=== PATIENT | female | born 1945 | race Caucasian/White ===

== ENCOUNTER 2021-12-18 08:28 | Day surgery (SDC) | payer MEDICARE, BC, SELFPAY ==
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
[2021-12-18 09:28] VITALS: BP 123/76; PULSE 70; RESP 16; TEMP 36; O2SAT 98
[2021-12-18] MEDS: Tropicam./Phenyleph. (1/2.5%) 5 ML BTL OS ×3 (09:32→09:45)
[2021-12-18 09:33] VITALS: BMI 27.3
[2021-12-18] MEDS: Tetracaine 0.5% 4 ML BTL OS (10:28)
[2021-12-18] MEDS: Lidocaine 1% Multi-Dose 10 ML VIAL (10:29)
[2021-12-18] MEDS: Duovisc Viscoelastic System EACH 1 EACH (10:30)
[2021-12-18] MEDS: Balanced Salt Soln.-PLUS 500 ML BAG (10:30)
[2021-12-18] MEDS: Povidone-Iodine Ophth 30 ML BTL (10:31)
[2021-12-18] MEDS: Lidocaine 2% Jelly 6 ML SYR (10:31)
[2021-12-18] MEDS: Trypan Blue 0.06% 0.5 ML SYR (10:32)
[2021-12-18 10:40] VITALS: BP 123/81; PULSE 72; RESP 18; TEMP 36.2; O2SAT 97
--- NOTE | 2021-12-18 10:43 | PDOC.DSDIS_ITS ---
Discharge Plan Disposition Patient Disposition: HOME Condition: Good Discharge Details Attending Provider: Suman Zelaya Primary Care Provider: Niurka Sanches Home Meds and New Rx's Prescriptions: No Action multivitamin Tablet 1 tab PO DAILY atorvastatin 10 mg Tablet 10 mg PO DAILY triamcinolone acetonide 0.1 % Cream 1 applic TOPICAL BID Potassium-99 99 mg Tablet 99 mg PO DAILY lisinopril 10 mg Tablet 10 mg PO DAILY triamcinolone acetonide [Nasacort] 55 mcg Aerosol,[place] 1 spray INTRANASAL DAILY glucosamine-chondroitin [Osteo Bi-Flex] 250-200 mg Tablet 1 tab PO DAILY Fiber Supplement Powder 1 pwd PO DAILY gabapentin 300 mg Tablet 300 mg PO HS calcium carbonate-vitamin D3 [Calcium + D] 600 mg-5 mcg (200 unit) Tablet 1 tab PO DAILY PreserVision AREDS-2 250-90-40-1 mg Tablet,Chewable 1 tab PO DAILY Fiber Gummies 2.5 gram Tablet,Chewable 2.5 g PO DAILY Discharge Instructions Stand Alone Forms: Post-op Topical Cataract, Sonia Martins ([facility]U) Discharge Orders Discharge Orders: Discharge Order (Routine); Ordered 12/18/21 Ordered By: Suman Zelaya DS: Diagnosis Discharge Diagnosis (1) Nuclear sclerotic cataract of left eye: Status: Resolved (2) Cortical cataract of left eye: Status: Resolved
--- NOTE | 2021-12-18 10:43 | ROE_ITS ---
Date of service: 12/18/21 Time of Service: 10:43 Operative Note Operative Note DATE OF PROCEDURE: 12/18/21 PRE-OP DIAGNOSIS: Nuclear/cortical cataract, left eye, dense Poor red reflex, left eye secondary to cataract POST-OP DIAGNOSIS: same PROCEDURE: Cataract extraction using phacoemulsification with intraocular lens implant, left eye, using capsular staining with Vision Blue SURGEON: Suman Zelaya ANESTHESIA TYPE: Local By Surgeon and MAC Refer to Anesthesia Record COMPLICATIONS: None Patient was transported to: same day Patient's condition: stable Implants: Alo and Alo / [employer] Tecnis [id number] Indications: Progressive decreased vision due to cataract, left eye, with poor red reflex Procedure Description: CATARACT SURGERY OPERATIVE REPORT PREOPERATIVE DIAGNOSIS: 1. Nuclear/cortical cataract, left eye 2. Poor red reflex secondary to #1 POSTOPERATIVE DIAGNOSIS: Same OPERATION: 1. Cataract extraction using phacoemulsification with posterior chamber intraocular lens implant, left eye. 2. Capsular staining with Vision Blue IOL: IOL Scientific Investigator/Model: Alo & Alo / JEAN Tecnis [id number] IOL Power: + 20.5 diopters IOL Serial Number: [id number] Optic Diameter: 6.0 mm Haptic/Overall Diameter: 13.0 mm PHACO INFO: Chad [employer]ion Vision System with OZil and Active Fluidics Cumulative Dispersed Energy (CDE): 8.76 seconds SURGEON: Suman Zelaya MD, TREVOR ANESTHESIA: Monitored A [facility] (MAC), with local sub-tenon's anesthetic infiltration COMPLICATIONS: None SPECIMENS: None INDICATIONS FOR PROCEDURE: Patient is a 76-year-old lady with history of diminished visual acuity in her left eye secondary to the development of nuclear and cortical cataract. The option of cataract surgery was offered to the patient and she wished to proceed. PROCEDURE: The correct surgical eye was identified and marked as the left eye and the pupil was dilated in the preoperative area using mydriatics and cycloplegics. The dilated pupil size was 6.5 mm. . The patient elected to proceed without oral sedation. The patient was brought to the operating room where cardiopulmonary monitoring was instituted and surgical time-out was performed, confirming the correct operative eye and IOL power. Topical anesthesia was administered and ophthalmic povidone-iodine 5% was instilled into the conjunctival fornices. Lidocaine gel was applied to the cornea and the alden-ocular area was prepped with Betadine 10% solution and draped in the usual sterile fashion for intraocular surgery, including an aperture drape. A Tegaderm transparent film dressing was cut in half and used to cover the lashes and lid margins. Care was taken to sequester the lashes and lid margins under the Tegaderm dressing. A lid speculum was placed between the lids of the operative eye and the Chad LuxOR Revalia operating microscope was maneuvered into position. Richar scissors were then used to make a conjunctival buttonhole approximately 6mm posterior to the limbus in the inferonasal quadrant. Blunt dissection was carried out to expose bare sclera, and a blunt-tipped sub-tenon?s anesthesia cannula was introduced and passed posteriorly along the globe where non- preserved plain lidocaine was injected into posterior sub-Tenon?s space. A sideport knife was used to make a paracentesis port superiorly/superiortemporally. Intraocular phenylephrine/lidocaine was injected int the anterior chamber.. Air was then injected into the anterior chamber, followed by Vision Blue, which was painted over the anterior capsule and then irrigated out using BSS. The anterior chamber was filled with viscoelastic. A keratome knife was used to create a 2-plane near clear corneal tunnel extending approximately 2 mm into clear cornea temporally. A flap was raised on the anterior capsule and capsulorhexis forceps were used to complete a continuous curvilinear capsulorhexis of 5.0mm. Balanced salt solution was then used to perform cortical cleaving hydrodissection and nuclear hydrodelineation until the lens could be freely rotated within the capsular bag. The lens nucleus was then disassembled and removed within the capsular bag and iris plane using phacoemulsification. Residual cortical material was removed using the 45-degree angled silicone I/A tip with 0.3mm port. The posterior capsule was carefully polished to remove as much residual lens epithelial cells as safely possible. The capsular bag was then inflated and the anterior chamber deepened with viscoelastic. The lens implant described above was inserted into the capsular bag using the JEAN Lathrop Injector. A Kuglen hook was used to dial the IOL into position. Residual viscoelastic was then removed first from posterior to the IOL, then from the anterior chamber using the I/A handpiece. The lens implant was noted to center nicely within the capsular bag. The incisions were stromally hydrated, and the anterior chamber was reformed using BSS. Then 0.5cc of moxifloxacin 1.0mg/ml were injected into the capsular bag and anterior chamber. The incisions were checked with a Weck spear and found to be secure. Several drops of ophthalmic povidone-iodine 5% were then applied to the eye followed by two drops of Imprimis combination prednisolone/moxifloxacin/nepafenac solution. The drapes were removed and a clear plastic protective eye shield was placed over the eye. The patient was then returned to Same Day Surgery in stable condition.
--- NOTE | 2021-12-18 11:11 | W.ANESPOSTOP ---
Postoperative Evaluation Date, Time and Location Date Performed: 12/18/21 Time Performed: 10:55 Patient Location: Day Surgery Unit Vital Signs Most Recent Imported Vital Signs: Most Recent Vital Signs Temp Pulse Resp BP Pulse Ox 36.2 C L 72 18 123/81 97 12/18/21 10:40 12/18/21 10:40 12/18/21 10:40 12/18/21 10:40 12/18/21 10:40 Pain Score Most Recent Pain Score: Most Recent Pain Score Pain Level 0 12/18/21 10:40 Assessment Mental Status: Awake (Alert & Oriented to Patient Baseline) Airway and Respiratory Function: Patent airway with normal (patient baseline) respiratory exam Cardiovascular Function: Hemodynamically Stable Hydration Status: Adequately Hydrated Nausea & Vomiting: No Nausea or Vomiting Pain: Pt. Denies Any Pain Peripheral Nerve Block: Patient did not receive a nerve block
== END 2021-12-18 11:10 | disposition home or self-care (01) ==
PROVIDERS: PCP Nurse Practitioner Family; Visit Provider Ophthalmology
PROC: (CPT 66982; principal; 2021-12-18 10:30)
DX: H25.12 Age-related nuclear cataract, left eye (principal); H26.8 Other specified cataract
CPT/HCPCS: 66982; V2632

== ENCOUNTER 2022-01-01 10:19 | Day surgery (SDC) | payer MEDICARE, BC, SELFPAY ==
[2022-01-01] MEDS: Tropicam./Phenyleph. (1/2.5%) 5 ML BTL OD ×3 (10:47→10:59)
[2022-01-01 10:49] VITALS: BP 140/80; PULSE 77; RESP 18; TEMP 36.7; O2SAT 98
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
[2022-01-01 11:49] VITALS: BMI 27.7
[2022-01-01] MEDS: Tetracaine 0.5% 4 ML BTL OD (12:09)
[2022-01-01] MEDS: Balanced Salt Soln.-PLUS 500 ML BAG (12:10)
[2022-01-01] MEDS: Duovisc Viscoelastic System EACH 1 EACH (12:11)
[2022-01-01] MEDS: Povidone-Iodine Ophth 30 ML BTL (12:12)
[2022-01-01] MEDS: Lidocaine 2% Jelly 6 ML SYR (12:12)
[2022-01-01] MEDS: Trypan Blue 0.06% 0.5 ML SYR (12:13)
[2022-01-01 12:24] VITALS: BP 139/71; PULSE 76; RESP 14; TEMP 36.1; O2SAT 98
--- NOTE | 2022-01-01 12:25 | PDOC.DSDIS_ITS ---
Discharge Plan Disposition Patient Disposition: HOME Condition: Good Discharge Details Attending Provider: Suman Zelaya Primary Care Provider: Niurka Sanches Home Meds and New Rx's Prescriptions: No Action multivitamin Tablet 1 tab PO DAILY atorvastatin 10 mg Tablet 10 mg PO DAILY triamcinolone acetonide 0.1 % Cream 1 applic TOPICAL BID Potassium-99 99 mg Tablet 99 mg PO DAILY lisinopril 10 mg Tablet 10 mg PO DAILY triamcinolone acetonide [Nasacort] 55 mcg Aerosol,[place] 1 spray INTRANASAL DAILY glucosamine-chondroitin [Osteo Bi-Flex] 250-200 mg Tablet 1 tab PO DAILY Fiber Supplement Powder 1 pwd PO DAILY gabapentin 300 mg Tablet 300 mg PO HS calcium carbonate-vitamin D3 [Calcium + D] 600 mg-5 mcg (200 unit) Tablet 1 tab PO DAILY PreserVision AREDS-2 250-90-40-1 mg Tablet,Chewable 1 tab PO DAILY Fiber Gummies 2.5 gram Tablet,Chewable 2.5 g PO DAILY Discharge Instructions Stand Alone Forms: Post-op Topical Cataract, Sonia Martins ([facility]) Discharge Orders Discharge Orders: Discharge Order (Routine); Ordered 01/01/22 Ordered By: Suman Zelaya DS: Diagnosis Discharge Diagnosis (1) Nuclear sclerotic cataract of right eye: Status: Resolved (2) Cortical cataract of right eye: Status: Resolved
--- NOTE | 2022-01-01 12:25 | W.ANESPOSTOP ---
Postoperative Evaluation Date, Time and Location Date Performed: 01/01/22 Time Performed: 12:25 Patient Location: Day Surgery Unit Vital Signs Most Recent Imported Vital Signs: Most Recent Vital Signs Temp Pulse Resp BP Pulse Ox 36.7 C 77 18 140/80 98 01/01/22 10:49 01/01/22 10:49 01/01/22 10:49 01/01/22 10:49 01/01/22 10:49 Most Recent Manually Entered Vital Signs: Adult Blood Pressure: 139/71 Heart Rate: 72 Respirations: 12 Oxygen Saturation (%): 97 Temperature (C): 36.3 C Pain Score (0-10 Scale): 0 Pain Score Most Recent Pain Score: Most Recent Pain Score Pain Level 0 01/01/22 10:49 Assessment Mental Status: Awake (Alert & Oriented to Patient Baseline) Airway and Respiratory Function: Patent airway with normal (patient baseline) respiratory exam Cardiovascular Function: Hemodynamically Stable Hydration Status: Adequately Hydrated Nausea & Vomiting: No Nausea or Vomiting Pain: Pt. Denies Any Pain Peripheral Nerve Block: Patient did not receive a nerve block
[2022-01-01 12:26] VITALS: BP 139/71; PULSE 72; RESP 12; TEMPC 36.3; O2SAT 97
--- NOTE | 2022-01-01 12:26 | ROE_ITS ---
Date of service: 01/01/22 Time of Service: 12: Operative Note Operative Note DATE OF PROCEDURE: 01/01/22 PRE-OP DIAGNOSIS: Dense nuclear/cortical cataract, right eye Poor red reflex, right eye secondary to cataract POST-OP DIAGNOSIS: same PROCEDURE: Cataract extraction using phacoemulsification with intraocular lens implantation, right eye, using capsular staining with Vision Blue SURGEON: Suman Zelaya ANESTHESIA TYPE: Local By Surgeon and MAC Refer to Anesthesia Record PATHOLOGY: none sent COMPLICATIONS: None Patient was transported to: same day Patient's condition: stable Implants: [employer] / [employer] Tecnis [id number] Indications: Progressive visual loss due to cataract, right eye Procedure Description: CATARACT SURGERY OPERATIVE REPORT PREOPERATIVE DIAGNOSIS: 1. Dense nuclear/cortical cataract, right eye 2. Poor red reflex secondary to #1 POSTOPERATIVE DIAGNOSIS: Same OPERATION: 1. Cataract extraction using phacoemulsification with posterior chamber intraocular lens implant, right eye. 2. Capsular staining with Vision Blue IOL: IOL Office Equipment Mechanic/Model: Al[employer] Alo / JEAN Tecnis [id number] IOL Power: + 20.0 diopters IOL Serial Number: [id number] Optic Diameter: 6.0mm Haptic/Overall Diameter: 13.0mm PHACO INFO: Chad [employer] Vision System with OZil and Active [employer]uidics Cumulative Dispersed Energy (CDE): 8.67 seconds SURGEON: Suman Zelaya MD, TREVOR ANESTHESIA: Monitored Anesthesia Care (MAC), with local sub-tenon's anesthetic infiltration COMPLICATIONS: None SPECIMENS: None INDICATIONS FOR PROCEDURE: The patient is a 76-year-old lady with history of diminished visual acuity in both eyes secondary to the development of bilateral nuclear/cortical cataract. She has already undergone cataract surgery in the left eye and is doing well postoperatively. She now presents for cataract surgery in the right eye. PROCEDURE: The correct surgical eye was identified and marked as the right eye and the pupil was dilated in the preoperative area using mydriatics and cycloplegics. The dilated pupil size was 6.5 mm. . The patient elected to proceed without oral sedation. The patient was brought to the operating room where cardiopulmonary monitoring was instituted and surgical time-out was performed, confirming the correct operative eye and IOL power. Topical anesthesia was administered and ophthalmic povidone-iodine 5% was instilled into the conjunctival fornices. Lidocaine gel was applied to the cornea and the alden-ocular area was prepped with Betadine 10% solution and draped in the usual sterile fashion for intraocular surgery, including an aperture drape. A Tegaderm transparent film dressing was cut in half and used to cover the lashes and lid margins. Care was taken to sequester the lashes and lid margins under the Tegaderm dressing. A lid speculum was placed between the lids of the operative eye and the Chad [employer] Rev[employer] operating microscope was maneuvered into position. Richar scissors were then used to make a conjunctival buttonhole approximately 6mm posterior to the limbus in the inferonasal quadrant. Blunt dissection was carried out to expose bare sclera, and a blunt-tipped sub-tenon?s anesthesia cannula was introduced and passed posteriorly along the globe where non- preserved plain lidocaine was injected into posterior sub-Tenon?s space. A sideport knife was used to make a paracentesis port inferotemporally. Intraocular phenylephrine/lidocaine was injected into the anterior chamber. Air was injected into the anterior chamber, followed by Vision Blue, which was painted over the anterior capsule and then irrigated out with BSS. The anterior chamber was filled with viscoelastic. A keratome knife was used to create a 2- plane near clear corneal tunnel extending approximately 2 mm into clear cornea superior temporally.. A flap was raised on the anterior capsule and capsulorhexis forceps were used to complete a continuous curvilinear capsulorhexis of 5.0 mm. Balanced salt solution was then used to perform cortical cleaving h ydrodissection and nuclear hydrodelineation until the lens could be freely rotated within the capsular bag. The lens nucleus was then disassembled and removed within the capsular bag and iris plane using phacoemulsification. Residual cortical material was removed using the I/A handpiece. The posterior capsule was carefully polished to remove as much residual lens epithelial cells as safely possible. The capsular bag was then inflated and the anterior chamber deepened with viscoelastic. The lens implant described above was inserted into the capsular bag using the JEAN [place] Injector. A Kuglen hook was used to dial the IOL into position. Residual viscoelastic was then removed first from posterior to the IOL, then from the anterior chamber using the I/A handpiece. The lens implant was noted to center nicely within the capsular bag. The incisions were stromally hydrated, and the anterior chamber was reformed using BSS. Then 0.5cc of moxifloxacin 1.0mg/ml were injected into the capsular bag and anterior chamber. The incisions were checked with a Weck spear and found to be secure. Several drops of ophthalmic povidone-iodine 5% were then applied to the eye followed by two drops of Imprimis combination prednisolone/moxifloxacin/nepafenac solution. The drapes were removed and a clear plastic protective eye shield was placed over the eye. The patient was then returned to [facility] in stable condition.
== END 2022-01-01 12:48 | disposition home or self-care (01) ==
LOC: SUR 10:20
PROVIDERS: PCP Nurse Practitioner Family; Visit Provider Ophthalmology
PROC: (CPT 66982; principal; 2022-01-01 12:00)
DX: H25.11 Age-related nuclear cataract, right eye (principal); H26.8 Other specified cataract; I10 Essential (primary) hypertension; E78.5 Hyperlipidemia, unspecified
CPT/HCPCS: 66982; V2632